=== PATIENT | male | born 1950 | race Caucasian/White ===

== ENCOUNTER 2017-01-07 01:57 | Emergency (ER) | payer OTHER ==
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
--- NOTE | ~2017-01-07 | EKG ---
PATIENT: BEATRICE JOSUE UNIT #: [id number] Ventricular Rate: 58 BPM Atrial Rate: 58 BPM P-R Interval: 250 ms QRS Duration: 124 ms Q-T Interval: 410 ms QTC Calculation(Bezet): 402 ms P [place]: 33 degrees Calculated R [place]: -58 degrees Calculated T [place]: 56 degrees Diagnosis Line: Sinus bradycardia with 1st degree A-V block Diagnosis Line: Left anterior fascicular block Diagnosis Line: Left ventricular hypertrophy with QRS widening Diagnosis Line: Cannot rule out Septal infarct , age undetermined Diagnosis Line: Abnormal ECG Diagnosis Line: When compared with ECG of 08-DEC-2016 19:45, Diagnosis Line: Minimal criteria for Septal infarct are now Diagnosis Line: Present Diagnosis Line: Confirmed by CALE BREWSTER MD ([id number]) on Diagnosis Line: 01/07/2017 3:27:07 PM INTERPRETING MD: NEY SCHRADER
[2017-01-07 01:50] LABS: BASOPHIL# 0.1 X10e3 (0-0.3); BASOPHIL% 1.4 % (0-2.5); EOSINOPHIL# 0.4 X10e3 (0-0.7); EOSINOPHIL% 4.7 % (0.0-7.0); HEMATOCRIT 45.1 % (38.0-50.0); HEMOGLOBIN 15.5 gm/dL (13.0-16.0); LYMPHOCYTE% 37.3 % (17.0-45.0); MEAN CELL VOLUME 94.6 FL (83-96); MEAN CORPUSCULAR HEMOGLOBIN 32.6 PG (28-34); MEAN CORPUSCULAR HGB CONC 34.5 g/dL (30-36); MEAN PLATELET VOLUME 8.9 FL (6.5-11.5); MONOCYTE# 0.7 X10e3 (0-1.0); MONOCYTE% 8.9 % (3.0-12.0); NEUTROPHIL# 3.9 X10e3 (1.5-7.1); NEUTROPHIL% 47.7 % (40-75); PLATELET COUNT 176 X10e3 (140-420); RED BLOOD COUNT 4.77 X10e (3.90-5.60); WHITE BLOOD COUNT 8.1 X10e3 (4.0-10.5)
[2017-01-07 01:53] LABS: DIFF IND NO
[2017-01-07 01:55] LABS: POC - CKMB 1.1 ng/mL (0.0-7.9); POC - TROPONIN <0.05 ng/mL (<=0.05)
[~2017-01-07 01:57] MED LIST: ASPIRIN PO; ASPIRIN81 M1 PO; ASPIRINEC PO; CLOPIDOGREL BIS75 MG PO; CLOPIDOGREL75 MG PO; CRESTOR10 MG PO; GLIPIZIDE10 MG PO; GLUCOPHAGE500 M1 PO; LIPITOR PO; LISINOPRIL PO; LISINOPRIL20 MG PO; LOPID600 MG PO; METFORMIN PO; METOPROLOL SUCC25 MG PO; METOPROLOL TAR25 MG PO; METOPROLOL TART25 MG PO; MEVACOR PO; NITROSTAT0.4 MG SL; OMEPRAZOLE20 M2 PO; PATIENT'S PHARMACY; PHENERGAN PO; PLAVIX PO; TAMIFLU75 M1 PO; ZESTRIL40 MG PO
[2017-01-07 02:08] LABS: PARTIAL THROMBOPLASTIN TIME 24.3 SECONDS (23.5-31.3); PROTHROMBIN TIME (PATIENT) 10.2 SECONDS (9.6-11.5)
[2017-01-07 02:14] LABS: ALBUMIN SERUM 4.1 g/dL (3.5-5.0); ALKALINE PHOSPHATASE 60 U/L (32-92); ALT (SGPT) 16 U/L (10-40); AST (SGOT) 19 U/L (10-42); BILIRUBIN, DIRECT 0.1 mg/dL (0.0-0.2); BILIRUBIN,INDIRECT 0.5 mg/dL (0.0-0.9); BILIRUBIN,TOTAL 0.6 mg/dL (0.2-2.0); BLOOD UREA NITROGEN 13 mg/dL (9-23); BUN/CREATININE RATIO 16.25; CALCIUM SERUM 8.9 mg/dL (8.4-10.2); CARBON DIOXIDE 25 mmol/L (22-31); CHLORIDE 101 mmol/L (100-111); CREATININE SERUM 0.8 mg/dL (0.6-1.4); GLOM FILT RATE Estimated ABOVE60 mL/min (>60); GLUCOSE FASTING 222 mg/dL (70-110); MAGNESIUM 1.9 mg/dL (1.6-3.0); POTASSIUM 4.1 mmol/L (3.5-5.1); PROTEIN TOTAL SERUM 7.4 g/dL (6.0-8.3); SODIUM 135 mmol/L (135-145)
[2017-01-07 03:28] LABS: POC - CKMB <1.0 ng/mL (0.0-7.9); POC - TROPONIN <0.05 ng/mL (<=0.05)
== END 2017-01-07 03:50 | disposition home or self-care (01) ==
LOC: CED 01:57
PROVIDERS: Student in an Organized Health Care Education/Training Program
DX: R07.89 Other chest pain (principal); Z76.0 Encounter for issue of repeat prescription; I10 Essential (primary) hypertension; E11.9 Type 2 diabetes mellitus without complications; Z86.73 Personal history of transient ischemic attack (TIA), and cerebral infarction without residual deficits
CPT/HCPCS: 36415; 71010; 80048; 80076; 82553; 83735; 83880; 84484; 85025; 85610; 85730; 93005; 99284

== ENCOUNTER 2017-05-12 01:52 | Emergency (ER) | payer OTHER ==
[~2017-05-12] VITALS: Ht 177.8 cm; Wt 95.2 kg
== END 2017-05-12 04:55 | disposition home or self-care (01) ==
LOC: CED 01:52
DX: S39.012A Strain of muscle, fascia and tendon of lower back, initial encounter (principal); E11.9 Type 2 diabetes mellitus without complications; I10 Essential (primary) hypertension; Z86.73 Personal history of transient ischemic attack (TIA), and cerebral infarction without residual deficits; X58.XXXA Exposure to other specified factors, initial encounter
CPT/HCPCS: 99283

== ENCOUNTER 2017-07-11 21:29 | Emergency (ER) | payer OTHER ==
[~2017-07-11] VITALS: Ht 180.3 cm; Wt 95.2 kg
--- NOTE | ~2017-07-11 | EKG ---
PATIENT: BEATRICE JOSUE UNIT #: [id number] Ventricular Rate: 60 BPM Atrial Rate: 60 BPM P-R Interval: 252 ms QRS Duration: 138 ms Q-T Interval: 402 ms QTC Calculation(Bezet): 402 ms P [place]: 44 degrees Calculated R [place]: -60 degrees Calculated T [place]: 71 degrees Diagnosis Line: Sinus rhythm with 1st degree A-V block Diagnosis Line: Right bundle branch block Diagnosis Line: Left anterior fascicular block Diagnosis Line: Bifascicular block Diagnosis Line: Left ventricular hypertrophy with repolarization Diagnosis Line: abnormality Diagnosis Line: Cannot rule out Septal infarct , age undetermined Diagnosis Line: Abnormal ECG Diagnosis Line: No previous ECGs available Diagnosis Line: Confirmed by CALE BREWSTER MD ([id number]) on Diagnosis Line: 07/12/2017 11:37:47 AM INTERPRETING MD: NEY SCHRADER
[2017-07-11 22:22] LABS: INFLUENZA A NEG (NEG); INFLUENZA B NEG (NEG)
[2017-07-12 00:51] LABS: BASOPHIL# 0.1 X10e3 (0-0.3); BASOPHIL% 1.2 % (0-2.5); EOSINOPHIL# 0.3 X10e3 (0-0.7); EOSINOPHIL% 3.7 % (0.0-7.0); HEMATOCRIT 42.3 % (38.0-50.0); HEMOGLOBIN 14.6 gm/dL (13.0-16.0); LYMPHOCYTE# 3.2 X10e3 (1.0-3.5); LYMPHOCYTE% 41.2 % (17.0-45.0); MEAN CELL VOLUME 97.3 FL (83-96); MEAN CORPUSCULAR HEMOGLOBIN 33.5 PG (28-34); MEAN CORPUSCULAR HGB CONC 34.4 g/dL (30-36); MEAN PLATELET VOLUME 8.3 FL (6.5-11.5); MONOCYTE# 0.7 X10e3 (0-1.0); MONOCYTE% 9.6 % (3.0-12.0); NEUTROPHIL# 3.4 X10e3 (1.5-7.1); NEUTROPHIL% 44.3 % (40-75); PLATELET COUNT 177 X10e3 (140-420); RED BLOOD COUNT 4.35 X10e (3.90-5.60); RED CELL DISTRIBUTION WIDTH 13.1 % (11.0-15.5); WHITE BLOOD COUNT 7.8 X10e3 (4.0-10.5)
[2017-07-12 00:53] LABS: DIFF IND NO
[2017-07-12 00:54] LABS: POC - CKMB 2.6 ng/mL (0.0-7.9); POC - TROPONIN <0.05 ng/mL (<=0.05)
[2017-07-12 01:14] LABS: BUN/CREATININE RATIO 14.16; CALCIUM SERUM 8.6 mg/dL (8.4-10.2); CREATININE SERUM 1.2 mg/dL (0.6-1.4); GLOM FILT RATE Estimated 61.8 mL/min (>60); POTASSIUM 3.7 mmol/L (3.5-5.1)
== END 2017-07-12 02:15 | disposition home or self-care (01) ==
LOC: CED 21:29
PROVIDERS: Emergency Medicine
DX: E11.65 Type 2 diabetes mellitus with hyperglycemia (principal); G47.00 Insomnia, unspecified
CPT/HCPCS: 80048; 82553; 82947; 84484; 85025; 87804; 93005; 99284